=== PATIENT | male | born 1970 | race Caucasian/White ===

== ENCOUNTER 2024-07-11 22:02 | Observation (INO) | payer OTHER ==
[~2024-07-11] VITALS: Ht 165.1 cm; Wt 44.5 kg
[2024-07-11] MEDS ORDERED: Ipratropium/Albuterol SulF 2.5-0.5MG/3 ML Amp INH PRN (22:20)
[2024-07-11 22:24] LABS: Base Excess Venous 4.4 mmol/L; Bicarbonate Venous 26.2 mmol/L (24.0-30.0); PCO2 Venous 58.8 mmHg (38-42); pH Blood Venous 7.32 (7.34-7.37)
[2024-07-11 22:30] LABS: BASOPHILS ABSOLUTE AUTO 0.08 K/mm3 (0.00-0.23); BASOPHILS PERCENT AUTO 1 % (0-2); EOSINOPHILS ABSOLUTE AUTO 0.14 K/mm3 (0.00-0.68); EOSINOPHILS PERCENT AUTO 1 % (0-6); Hematocrit 41.5 % (37.0-53.0); Hemoglobin 13.6 g/dL (13.5-17.5); IMMATURE GRAN ABSOLUTE AUTO 0.09 K/mm3 (0.00-0.10); IMMATURE GRAN PERCENT AUTO 1 % (0-1); LYMPHOCYTES ABSOLUTE AUTO 1.97 K/mm3 (0.84-5.20); LYMPHOCYTES PERCENT AUTO 13 % (21-46); MONOCYTES ABSOLUTE AUTO 1.11 K/mm3 (0.16-1.47); MONOCYTES PERCENT AUTO 7 % (4-13); Mean Corpuscular HGB 30.4 pg (26.0-34.0); Mean Corpuscular HGB Conc 32.8 g/dL (31.5-36.5); Mean Corpuscular Volume 93 fL (80-100); Mean Platelet Volume 9.6 fL (9.1-12.4); NEUTROPHILS ABSOLUTE AUTO 12.31 K/mm3 (1.96-9.15); NEUTROPHILS PERCENT AUTO 78 % (41-73); Platelet Count 378 K/mm3 (150-400); RDW Coefficient Variation 15.1 % (11.7-14.2); RDW Standard Deviation 51.5 fL (35.1-46.3); Red Blood Cell Count 4.48 M/mm3 (4.30-5.90)
[2024-07-11] MEDS ORDERED: NS 1,000 ML IV SCH (22:30)
[2024-07-11] MEDS ORDERED: MethylPREDNISolone Sod Succ 125 MG Vial IV ONE (22:30)
[2024-07-11 23:10] LABS: Albumin, Blood 3.6 g/dL (3.4-5.0); Albumin/Globulin Ratio 0.9 (0.8-1.8); Bilirubin, Total 0.2 mg/dL (0.1-1.0); Bun/Creatinine Ratio 20.5 (12.0-20.0); Calcium, Blood 8.6 mg/dL (8.5-10.1); Creatinine, Blood 0.78 mg/dL (0.60-1.20); Globulin, Blood 3.8 g/dL (2.2-4.0); Magnesium, Blood 2.2 mg/dL (1.6-2.4); Phosphorus, Blood 4.5 mg/dL (2.5-4.9); Potassium, Blood 4.5 mmol/L (3.5-5.5); Thyroid Stimulating Hormone 3.04 uIU/mL (0.360-4.800); Total Protein, Blood 7.4 g/dL (6.4-8.2)
[2024-07-11] MEDS ORDERED: Azithromycin 500 MG in NS 250 ML IV ONE (23:50)
[2024-07-11] MEDS ORDERED: CefTRIAXone Sodium 1,000 MG in NS 50 ML IV ONE (23:50)
[2024-07-12 01:03] LABS: Source, Urine Clean Catch
[2024-07-12 01:12] LABS: Bilirubin, Urine Neg (Neg); Blood, Urine Neg (Neg); Glucose Qualitative, Urine Neg (Neg); Ketones, Urine Neg (Neg); Leukocyte Esterase, Urine Neg (Neg); Nitrite, Urine Neg (Neg); Protein, Urine Neg (Neg); Specific Gravity, Urine 1.025 (1.003-1.022); Urobilinogen, Urine NORM (Normal)
[2024-07-12 01:23] LABS: Appearance, Urine Clear (Clear); Color, Urine Yellow (P-Yellow)
[2024-07-12 01:26] LABS: CORONAVIRUS COVID-19 AG Negative (NEGATIVE); INFLUENZA A AG Negative (NEGATIVE); INFLUENZA B AG Negative (NEGATIVE)
[2024-07-12] MEDS ORDERED: FLU VACC TS2024-25(6MOS UP)/PF 45 MCG/0.5 ML SYRINGE IM ONE (01:35)
[2024-07-12] MEDS ORDERED: Ipratropium/Albuterol SulF 2.5-0.5MG/3 ML Amp INH SCH (01:35)
[2024-07-12 02:58] LABS: Base Excess Venous 1.5 mmol/L; Bicarbonate Venous 25.4 mmol/L (24.0-30.0); PCO2 Venous 45.9 mmHg (38-42); pH Blood Venous 7.37 (7.34-7.37)
[2024-07-12 05:17] LABS: BASOPHILS ABSOLUTE AUTO 0.04 K/mm3 (0.00-0.23); BASOPHILS PERCENT AUTO 0 % (0-2); EOSINOPHILS PERCENT AUTO 0 % (0-6); Hematocrit 37.7 % (37.0-53.0); Hemoglobin 12.5 g/dL (13.5-17.5); IMMATURE GRAN ABSOLUTE AUTO 0.08 K/mm3 (0.00-0.10); IMMATURE GRAN PERCENT AUTO 1 % (0-1); LYMPHOCYTES ABSOLUTE AUTO 0.34 K/mm3 (0.84-5.20); LYMPHOCYTES PERCENT AUTO 2 % (21-46); MONOCYTES ABSOLUTE AUTO 0.05 K/mm3 (0.16-1.47); MONOCYTES PERCENT AUTO 0 % (4-13); Mean Corpuscular HGB 30.7 pg (26.0-34.0); Mean Corpuscular HGB Conc 33.2 g/dL (31.5-36.5); Mean Corpuscular Volume 93 fL (80-100); Mean Platelet Volume 9.7 fL (9.1-12.4); NEUTROPHILS ABSOLUTE AUTO 14.66 K/mm3 (1.96-9.15); NEUTROPHILS PERCENT AUTO 97 % (41-73); Platelet Count 323 K/mm3 (150-400); RDW Standard Deviation 51.1 fL (35.1-46.3); Red Blood Cell Count 4.07 M/mm3 (4.30-5.90); White Blood Cell Count 15.17 K/mm3 (4.00-11.30)
[2024-07-12 05:51] LABS: Albumin, Blood 3.1 g/dL (3.4-5.0); Albumin/Globulin Ratio 0.9 (0.8-1.8); Bilirubin, Total 0.3 mg/dL (0.1-1.0); Bun/Creatinine Ratio 28.6 (12.0-20.0); Calcium, Blood 8.2 mg/dL (8.5-10.1); Creatinine, Blood 0.56 mg/dL (0.60-1.20); Globulin, Blood 3.3 g/dL (2.2-4.0); Potassium, Blood 4.2 mmol/L (3.5-5.5); Total Protein, Blood 6.4 g/dL (6.4-8.2)
[2024-07-12] MEDS ORDERED: Enoxaparin 40 MG/0.4 ML SYR SC SCH (09:00)
[2024-07-12] MEDS ORDERED: Amoxicillin/Clavulanate K 875 MG Tab PO SCH (09:00)
[2024-07-12] MEDS ORDERED: GuaiFENesin 600 MG TabCR PO SCH (09:00)
[2024-07-12] MEDS ORDERED: MethylPREDNISolone Sod Succ 125 MG Vial IV SCH (09:00)
[2024-07-12 10:34] VITALS: BP 146/92
[2024-07-12] MEDS ORDERED: TRELEGY ELLIPT1 EACH IH (10:43)
[2024-07-12] MEDS ORDERED: ALBU90OI INH (10:43)
[2024-07-12] MEDS ORDERED: PRED20 PO (11:20)
[2024-07-12] MEDS ORDERED: AZIT250 PO (11:20)
[2024-07-12] MEDS ORDERED: BENZ100A PO (11:38)
[2024-07-12 13:49] LABS: Adenovirus Not Detected (NOT DETECT); Bordetella pertussis Not Detected (NOT DETECT); Chlamydophila pneumoniae Not Detected (NOT DETECT); Coronavirus 229E Not Detected (NOT DETECT); Coronavirus HKU1 Not Detected (NOT DETECT); Coronavirus NL63 Not Detected (NOT DETECT); Coronavirus OC43 Detected (NOT DETECT); Human Metapneumovirus Not Detected (NOT DETECT); Human Rhinovirus/Enterovirus Not Detected (NOT DETECT); Influenza A/2009-H1 Not Detected (NOT DETECT); Influenza A/H1 Not Detected (NOT DETECT); Influenza A/H3 Not Detected (NOT DETECT); Influenza B Not Detected (NOT DETECT); Mycoplasma pneumoniae Not Detected (NOT DETECT); Parainfluenza Virus 1 Not Detected (NOT DETECT); Parainfluenza Virus 2 Not Detected (NOT DETECT); Parainfluenza Virus 3 Not Detected (NOT DETECT); Parainfluenza Virus 4 Not Detected (NOT DETECT); Respiratory Syncytial Virus Not Detected (NOT DETECT); SARS-Cov-2 (COVID-19), BioFire Not Detected (NOT DETECT)
[2024-07-12] MEDS ORDERED: Acetaminophen 325 MG TABLET PO PRN (14:55)
[2024-07-12 15:49] VITALS: BP 131/71
--- NOTE | 2024-07-12 17:45 | NUR ---
SHIFT SUMMARY PT AOX4, SBA TO THE BR. USING THE URINAL AT TIMES. CALLS TO MAKE HIS NEEDS KNOWN. ON 2L NC WHICH IS HIS BASELINE. NO SOB NOTED. CIWA SCORING AVAILABLE, DR. FUENTES SAID SHE WOULD PUT IN THE ORDERS. MEDICATED FOR BACK PAIN PER THE EMAR AND PT STATED RELIEF. PT REPOSITIONS SELF IN BED. NO ACUTE CHANGE SINCE THE ADMIT. CALL LIGHT WITHIN REACH, BED LOCKED AND IN THE LOWEST POSITION. WILL REPORT TO ONCOMING NURSE.
[2024-07-12 19:43] VITALS: BP 121/87
[2024-07-12] MEDS ORDERED: LORazepam 2 MG/ML 1ML Injection IV PRN ×3 (21:15→21:20)
[2024-07-12] MEDS ORDERED: HydrALAZINE HCl 20 MG / ML 1ML Vial IV PRN (21:20)
[2024-07-12] MEDS ORDERED: Ondansetron HCl 2 MG / ML 2ML Vial IV PRN (21:20)
[2024-07-12] MEDS ORDERED: Loperamide HCl 2 MG Cap PO PRN ×2 (21:20)
[2024-07-12] MEDS ORDERED: NS 250 ML IV PRN (21:45)
[2024-07-12] MEDS ORDERED: Folic Acid 1 MG in NS 50 ML IV SCH (22:00)
[2024-07-12] MEDS ORDERED: Pramipexole DI-HCL 0.125 MG Tab PO SCH (22:00)
[2024-07-12] MEDS ORDERED: Thiamine HCl 100 MG in NS 50 ML IV SCH (22:00)
--- NOTE | 2024-07-13 03:32 | NUR ---
SHIFT SUMMARY 54 YR M ADMITTED ON 07/11/24. FULL CODE. NO ACUTE CHANGES THIS SHIFT. PT IS VERY FRIENDLY AND COOPERATIVE WITH CARE. MEDICATED FOR BACK PAIN PER EMAR. NO INDICATION FOR CIWA SCORING THIS SHIFT. PT HAS SLEPT FOR MOAT OF THE NIGHT. NO NEW CHANGES TO REPORT. WILL CONTINUE TO MONITOR. BED IN LOW POSITION AND CALL LIGHT IN REACH.
[2024-07-13 04:44] VITALS: BP 104/65
[2024-07-13 05:10] LABS: BASOPHILS ABSOLUTE AUTO 0.01 K/mm3 (0.00-0.23); BASOPHILS PERCENT AUTO 0 % (0-2); EOSINOPHILS PERCENT AUTO 0 % (0-6); Hematocrit 36.6 % (37.0-53.0); Hemoglobin 12.3 g/dL (13.5-17.5); IMMATURE GRAN ABSOLUTE AUTO 0.04 K/mm3 (0.00-0.10); IMMATURE GRAN PERCENT AUTO 0 % (0-1); LYMPHOCYTES ABSOLUTE AUTO 0.65 K/mm3 (0.84-5.20); LYMPHOCYTES PERCENT AUTO 5 % (21-46); MONOCYTES ABSOLUTE AUTO 0.37 K/mm3 (0.16-1.47); MONOCYTES PERCENT AUTO 3 % (4-13); Mean Corpuscular HGB 30.8 pg (26.0-34.0); Mean Corpuscular HGB Conc 33.6 g/dL (31.5-36.5); Mean Corpuscular Volume 92 fL (80-100); Mean Platelet Volume 9.6 fL (9.1-12.4); NEUTROPHILS ABSOLUTE AUTO 11.14 K/mm3 (1.96-9.15); NEUTROPHILS PERCENT AUTO 91 % (41-73); Platelet Count 300 K/mm3 (150-400); RDW Coefficient Variation 15.2 % (11.7-14.2); RDW Standard Deviation 51.1 fL (35.1-46.3); White Blood Cell Count 12.21 K/mm3 (4.00-11.30)
[2024-07-13 05:44] LABS: Albumin, Blood 3.3 g/dL (3.4-5.0); Bilirubin, Total 0.3 mg/dL (0.1-1.0); Bun/Creatinine Ratio 20.3 (12.0-20.0); Calcium, Blood 8.9 mg/dL (8.5-10.1); Creatinine, Blood 0.69 mg/dL (0.60-1.20); Globulin, Blood 3.4 g/dL (2.2-4.0); Potassium, Blood 4.5 mmol/L (3.5-5.5); Total Protein, Blood 6.7 g/dL (6.4-8.2)
[2024-07-13 07:25] VITALS: BP 106/72
[2024-07-13] MEDS ORDERED: NIRMATRELVIR/RITONAVIR 3 TAB BLISTER CARD PO SCH (09:00)
[2024-07-13] MEDS ORDERED: Lactobacil 2-S.Thermo-Bifido 1 1 Cap PO SCH (09:00)
[2024-07-13] MEDS ORDERED: Azithromycin 250 MG Tab PO SCH (09:00)
[2024-07-13] MEDS ORDERED: PRAM.125 PO (13:19)
[2024-07-13] MEDS ORDERED: VISBIOME 112.51 EACH PO (13:20)
--- NOTE | 2024-07-13 16:44 | NUR ---
DISCHARGE NOTE PT DISCHARGED TO HOME, PICKED UP BY HIS NEPHEW. IV REMOVED. OXYGEN PROVIDED BY [facility], [place]. DISCHARGE MEDICATIONS FAXED TO THE PHARMACY OF HIS CHOICE. DISCHARGE EDUCATION AND INFORMATION PROVIDED.
== END 2024-07-13 16:21 | disposition home or self-care (01) ==
LOC: ER 22:02 → MEDS 22:03 → ERHOLD 22:03 → MEDS 07-12 10:27
PROVIDERS: Emergency Medicine; ADMIT Student in an Organized Health Care Education/Training Program
DX: J96.02 Acute respiratory failure with hypercapnia (principal); J96.01 Acute respiratory failure with hypoxia; J44.1 Chronic obstructive pulmonary disease with (acute) exacerbation; F10.90 Alcohol use, unspecified, uncomplicated; G25.81 Restless legs syndrome; F17.210 Nicotine dependence, cigarettes, uncomplicated; Z99.81 Dependence on supplemental oxygen; Z79.899 Other long term (current) drug therapy
CPT/HCPCS: 0202U; 36415; 71046; 80053; 81003; 82803; 83605; 83735; 83880; 84100; 84145; 84443; 84484; 85025; 85379; 87040; 87428-QW; 93005; 93010; 94640; 94664; 94760; 94761; 96365; 96366; 96367; 96368; 96372; 96372-59; 96375; 96376; 99285-25; A9270; G0378; J0456; J0696; J1650; J2919; J3411; J7030; J7050

== ENCOUNTER 2024-08-11 23:43 | Emergency (ER) | payer OTHER ==
[~2024-08-11] VITALS: Ht 165.1 cm; Wt 48.5 kg
[~2024-08-11 23:43] MED LIST: ALBU90OI INH; AZIT250 PO; BENZ100A PO; PRAM.125 PO; PRED20 PO; TRELEGY ELLIPT1 EACH IH; VISBIOME 112.51 EACH PO
[2024-08-12] MEDS ORDERED: Ipratropium/Albuterol SulF 2.5-0.5MG/3 ML Amp INH ONE (01:00)
[2024-08-12 01:07] LABS: BASOPHILS ABSOLUTE AUTO 0.15 K/mm3 (0.00-0.23); BASOPHILS PERCENT AUTO 2 % (0-2); EOSINOPHILS ABSOLUTE AUTO 0.45 K/mm3 (0.00-0.68); EOSINOPHILS PERCENT AUTO 5 % (0-6); Hematocrit 42.6 % (37.0-53.0); Hemoglobin 13.8 g/dL (13.5-17.5); IMMATURE GRAN ABSOLUTE AUTO 0.04 K/mm3 (0.00-0.10); IMMATURE GRAN PERCENT AUTO 1 % (0-1); LYMPHOCYTES ABSOLUTE AUTO 2.54 K/mm3 (0.84-5.20); LYMPHOCYTES PERCENT AUTO 29 % (21-46); MONOCYTES ABSOLUTE AUTO 0.72 K/mm3 (0.16-1.47); MONOCYTES PERCENT AUTO 8 % (4-13); Mean Corpuscular HGB 30.9 pg (26.0-34.0); Mean Corpuscular HGB Conc 32.4 g/dL (31.5-36.5); Mean Corpuscular Volume 95 fL (80-100); Mean Platelet Volume 10.1 fL (9.1-12.4); NEUTROPHILS ABSOLUTE AUTO 4.78 K/mm3 (1.96-9.15); NEUTROPHILS PERCENT AUTO 55 % (41-73); Platelet Count 429 K/mm3 (150-400); RDW Coefficient Variation 14.8 % (11.7-14.2); Red Blood Cell Count 4.47 M/mm3 (4.30-5.90); White Blood Cell Count 8.68 K/mm3 (4.00-11.30)
[2024-08-12 01:19] LABS: Albumin, Blood 3.7 g/dL (3.4-5.0); Bilirubin, Total 0.1 mg/dL (0.1-1.0); Bun/Creatinine Ratio 25.5 (12.0-20.0); Calcium, Blood 9.1 mg/dL (8.5-10.1); Creatinine, Blood 0.59 mg/dL (0.60-1.20); Globulin, Blood 3.8 g/dL (2.2-4.0); Potassium, Blood 4.4 mmol/L (3.5-5.5); Total Protein, Blood 7.5 g/dL (6.4-8.2)
[2024-08-12 02:38] LABS: D-Dimer, Quantitative 0.3 mg/L FEU (0.00-0.52)
[2024-08-12] MEDS ORDERED: LevoFLOXacin 750 MG Tab PO ONE (02:50)
[2024-08-12] MEDS ORDERED: LEVO750 PO (02:51)
== END 2024-08-12 09:05 | disposition home or self-care (01) ==
LOC: ER 23:43
PROVIDERS: Emergency Medicine
DX: J44.1 Chronic obstructive pulmonary disease with (acute) exacerbation (principal); J18.9 Pneumonia, unspecified organism; Z59.89 Other problems related to housing and economic circumstances; Z79.2 Long term (current) use of antibiotics; Z79.899 Other long term (current) drug therapy
CPT/HCPCS: 71046; 80053; 84484; 85025; 85379; 85730; 94640; 94664; 99285-25; A9270

== ENCOUNTER → 2024-09-02 | Outpatient (CLI) | payer OTHER ==
[~2024-09-02] MED LIST changes: +LEVO750 PO
[2024-09-02 16:00] LABS: BASOPHILS ABSOLUTE AUTO 0.13 K/mm3 (0.00-0.23); BASOPHILS PERCENT AUTO 2 % (0-2); EOSINOPHILS ABSOLUTE AUTO 0.37 K/mm3 (0.00-0.68); EOSINOPHILS PERCENT AUTO 5 % (0-6); Hemoglobin 14.2 g/dL (13.5-17.5); IMMATURE GRAN ABSOLUTE AUTO 0.02 K/mm3 (0.00-0.10); IMMATURE GRAN PERCENT AUTO 0 % (0-1); LYMPHOCYTES ABSOLUTE AUTO 1.83 K/mm3 (0.84-5.20); LYMPHOCYTES PERCENT AUTO 26 % (21-46); MONOCYTES ABSOLUTE AUTO 0.65 K/mm3 (0.16-1.47); MONOCYTES PERCENT AUTO 9 % (4-13); Mean Corpuscular HGB 30.3 pg (26.0-34.0); Mean Corpuscular HGB Conc 32.3 g/dL (31.5-36.5); Mean Corpuscular Volume 94 fL (80-100); NEUTROPHILS ABSOLUTE AUTO 4.09 K/mm3 (1.96-9.15); NEUTROPHILS PERCENT AUTO 58 % (41-73); Platelet Count 318 K/mm3 (150-400); RDW Coefficient Variation 14.8 % (11.7-14.2); RDW Standard Deviation 51.8 fL (35.1-46.3); Red Blood Cell Count 4.68 M/mm3 (4.30-5.90); White Blood Cell Count 7.09 K/mm3 (4.00-11.30)
[2024-09-02 18:13] LABS: Alanine Aminotransfer (ALT/SGP 28 U/L (12-78); Albumin, Blood 3.8 g/dL (3.4-5.0); Albumin/Globulin Ratio 1.2 (0.8-1.8); Alk Phos 66 U/L (50-136); Anion Gap 9 mmol/L (3-11); Aspartate Aminotrans (AST/SGOT 18 U/L (12-37); Bilirubin, Total 0.6 mg/dL (0.1-1.0); Blood Urea Nitrogen 11 mg/dL (8-24); Bun/Creatinine Ratio 15.1 (12.0-20.0); CHOL/HDL RATIO 2.1; CO2, Blood 29 mmol/L (21-32); Calcium, Blood 9.1 mg/dL (8.5-10.1); Chloride, Blood 105 mmol/L (98-108); Cholesterol 186 mg/dL (50-200); Creatinine, Blood 0.73 mg/dL (0.60-1.20); Globulin, Blood 3.1 g/dL (2.2-4.0); Glomerular Filtration Rate 109 (60-); Glucose, Blood 107 mg/dL (70-99); HDL Cholesterol 87 mg/dL (>39); LDL/HDL RATIO 0.9; Low Density Lipoprotein Chol 81 mg/dL (0-110); Potassium, Blood 4.2 mmol/L (3.5-5.5); Sodium, Blood 139 mmol/L (136-145); Total Protein, Blood 6.9 g/dL (6.4-8.2); Triglycerides 88 mg/dL (30-160); Very Low Density Lipoprot Chol 18 mg/dL (6-32)
== END ==
LOC: LAB 14:20 → LAB SHORT 14:20
DX: Z51.81 Encounter for therapeutic drug level monitoring (principal); Z79.899 Other long term (current) drug therapy
CPT/HCPCS: 80053; 80061; 82306; 83036; 84443; 85025